=== PATIENT | female | born 1940 | race Caucasian/White ===

== ENCOUNTER 2020-12-13 19:11 | Inpatient (IN) | payer MEDICARE, OTHER ==
[~2020-12-13] VITALS: Ht 167.6 cm; Wt 87.1 kg
[~2020-12-13 19:11] MED LIST: ADVAIR 100-501 EACH; ALEVE220 M1 PO; ALIGN4 MG PO; AMLODIPINE BESYL5 MG PO; ATENOLOL25 MG PO; ATENOLOL50 MG PO; AZELASTINE137 MCG/0.; BENADRYL25 M1 PO; CARVEDILOL12.5 MG PO; CLOBETASOL1 EA/15 GM TOP; COUMADIN5 MG PO; DICLOFENAC SODI50 MG PO; DICYCLOMINE HCL20 MG PO; DIGOXIN125 MCG PO; DOCUSATE SODIU100 MG PO; ESCITALOPRAM OX20 MG PO; FERROUS SULFAT325 MG PO; FLAGYL250 MG PO; HUMALOG100 UNIT/1; HUMULIN 70-30 V10 ML SQ; HYDRALAZINE HCL10 MG PO; HYDRALAZINE HCL25 MG PO; HYDROCHLOROTHIA25 MG PO; KLOR-CON M2020 MEQ; KLOR-CON M2020 MEQ PO; LANTUS SOL300 UNIT/3 SQ; LEVOCETIRIZINE D5 MG PO; LEVOTHYROXINE50 MCG PO; LEXAPRO10 MG PO; LISINOPRIL10 MG PO; LORAZEPAM0.5 MG PO; LOSARTAN POTAS100 MG PO; LOSARTAN POTASS25 MG PO; LOSARTAN-HCTZ1 EAC2 PO; MELOXICAM7.5 MG PO; MINOCYCLINE HCL50 MG PO; NITROSTAT0.4 MG SL; NORCO 7.5-3251 EACH PO; PANTOPRAZOLE SO40 MG PO; PROTONIX40 MG PO; SIMVASTATIN40 MG PO; TOUJEO SC; TRAMADOL-ACETAMI1 EA PO; TRAZODONE HCL50 MG PO; TYLENOL WITH C1 EACH PO; ULTRAM50 MG PO; VITAMIN B-1100 M1 PO; VITAMIN B12 PO; WARFARIN SODIUM5 MG; XARELTO20 MG PO; Z DILTIAZEM PO; Z.0.ATIVAN0.5 MG PO; Z.0.GLIPIZIDE ER10 M PO; Z.0.LEVOTHROID50 MCG PO; Z.0.LEXAPRO20 MG PO; Z.0.LISINOPRIL40 MG PO; Z.0.LOSARTAN POTAS10 PO; Z.0.LYRICA50 MG PO; Z.0.PANTOPRAZOLE SO4 PO; Z.0.PLAVIX75 MG PO; Z.0.PROTONIX40 MG PO; Z.0.SIMVASTATIN40 MG PO
[2020-12-13] MEDS ORDERED: ASPIRIN 81 MG CHEW TAB PO ONE ×2 (19:15→21:15)
[2020-12-13] MEDS ORDERED: DILTIAZEM HCL 5 MG/ML 5 ML VIAL IV STA (19:23)
[2020-12-13 19:33] LABS: BASOPHILS # (AUTO) 0.1 (0.0-0.1); BASOPHILS % 0.4 % (0.0-1.0); EOSINOPHILS # (AUTO) 0.4 (0.0-0.4); EOSINOPHILS % 2.7 % (0.0-6.0); HEMATOCRIT 40.6 % (34.2-44.1); HEMOGLOBIN 13.7 g/dL (12.0-16.0); LYMPHOCYTES # (AUTO) 1.2 (1.0-3.2); LYMPHOCYTES % 8.9 % (18.0-39.1); MEAN CORPUSCULAR HEMOGLOBIN 28.7 pg (28-32); MEAN CORPUSCULAR HGB CONC 33.7 g/dL (31-35); MEAN CORPUSCULAR VOLUME 85.1 fL (81-99); MONOCYTES # (AUTO) 0.7 (0.2-0.8); MONOCYTES % 4.7 % (4.4-11.3); NEUTROPHILS # (AUTO) 11.5 (2.1-6.9); PLATELET COUNT 504 x10e3/uL (140-360); RED BLOOD COUNT 4.77 x10e6/uL (3.6-5.1); RED CELL DISTRIBUTION WIDTH 13.6 % (11.7-14.4)
[2020-12-13 20:00] LABS: ALBUMIN 3.5 g/dL (3.5-5.0); ALBUMIN/GLOBULIN RATIO 1.2 (0.8-2.0); ANION GAP 18.1 mmol/L (8-16); CALCIUM 8.5 mg/dL (8.4-10.2); CREATININE, SERUM 1.08 mg/dL (0.57-1.11); POTASSIUM 5.1 mmol/L (3.5-5.1)
[2020-12-13 20:11] LABS: CREATINE KINASE MB 1.9 ng/mL (0-5.0)
[2020-12-13] MEDS ORDERED: MORPHINE SULFATE INJ 4 MG/ML INJ 1ML IV PRN (21:15)
[2020-12-13] MEDS ORDERED: ONDANSETRON HCL INJ 2MG/ML 2ML 2 MG/ML VIAL IV PRN (21:15)
[2020-12-13 22:23] VITALS: BP 113/99
[2020-12-13 22:50] VITALS: BP 113/99
[2020-12-13 22:53] VITALS: BP 113/99
[2020-12-14] VITALS (7 sets, daily range): BP systolic 126–169; BP diastolic 55–71
[2020-12-14] MEDS ORDERED: MUCINEX DM ER1 EAC1 PO (01:40)
[2020-12-14] MEDS ORDERED: ALENDRONATE SOD70 MG PO (02:11)
[2020-12-14] MEDS ORDERED: FLONASE ALLERG9.9 ML INH (02:11)
[2020-12-14] MEDS ORDERED: NAMENDA5 MG PO (02:11)
[2020-12-14] MEDS ORDERED: ISOSORBIDE MONO30 MG PO (02:11)
[2020-12-14] MEDS ORDERED: FLUOXETINE HCL20 MG PO (02:11)
[2020-12-14] MEDS ORDERED: XARELTO20 MG PO (02:11)
[2020-12-14] MEDS ORDERED: CYMBALTA30 MG PO (02:11)
[2020-12-14] MEDS ORDERED: ENTRESTO 24 MG1 EACH PO (02:11)
[2020-12-14 04:47] LABS: BASOPHILS % 0.3 % (0.0-1.0); EOSINOPHILS # (AUTO) 0.3 (0.0-0.4); EOSINOPHILS % 3.7 % (0.0-6.0); HEMATOCRIT 39.1 % (34.2-44.1); LYMPHOCYTES # (AUTO) 1.6 (1.0-3.2); LYMPHOCYTES % 17.7 % (18.0-39.1); MEAN CORPUSCULAR HEMOGLOBIN 28.5 pg (28-32); MEAN CORPUSCULAR HGB CONC 33.2 g/dL (31-35); MEAN CORPUSCULAR VOLUME 85.7 fL (81-99); MONOCYTES # (AUTO) 0.8 (0.2-0.8); MONOCYTES % 8.9 % (4.4-11.3); NEUTROPHILS # (AUTO) 6.1 (2.1-6.9); NEUTROPHILS % 68.8 % (38.7-80.0); PLATELET COUNT 408 x10e3/uL (140-360); RED BLOOD COUNT 4.56 x10e6/uL (3.6-5.1); RED CELL DISTRIBUTION WIDTH 13.8 % (11.7-14.4)
[2020-12-14 05:26] LABS: ALANINE AMINOTRANSFERASE 12 IU/L (0-55); ALBUMIN 3.2 g/dL (3.5-5.0); ALBUMIN/GLOBULIN RATIO 1.2 (0.8-2.0); ALKALINE PHOSPHATASE 49 IU/L (40-150); ANION GAP 14.4 mmol/L (8-16); BLOOD UREA NITROGEN 13 mg/dL (7-26); BUN/CREATININE RATIO 15 (6-25); CALCIUM 8.6 mg/dL (8.4-10.2); CARBON DIOXIDE 24 mmol/L (22-29); CHLORIDE 95 mmol/L (98-107); CREATININE, SERUM 0.86 mg/dL (0.57-1.11); EST GLOMERULAR FILTRATION RATE > 60 ML/MIN (60-); GLUCOSE 169 mg/dL (74-118); POTASSIUM 4.4 mmol/L (3.5-5.1); SODIUM 129 mmol/L (136-145)
[2020-12-14 06:17] LABS: CREATINE KINASE MB 9.2 ng/mL (0-5.0)
[2020-12-14] MEDS ORDERED: ZOLPIDEM TARTRATE 5 MG TAB PO PRN (09:45)
[2020-12-14] MEDS ORDERED: DOCUSATE SODIUM 100 MG CAP PO PRN (09:45)
[2020-12-14] MEDS ORDERED: ACETAMINOPHEN 325 MG TAB PO PRN (09:45)
[2020-12-14] MEDS ORDERED: CEFTRIAXONE 2 GM/DEXT 100 ML 2 GM/100 ML ML IV SCH (09:45)
[2020-12-14 10:43] LABS: CHOL/HDL RATIO 4.8 (3.0-3.6)
[2020-12-14] MEDS ORDERED: CEFTRIAXONE 1 GM in SODIUM CHLORIDE 0.9% 50ML 50 ML IV SCH (11:00)
[2020-12-14] MEDS: SODIUM CHLORIDE 0.9% 1000ML 1,000 ML IV SCH ×2 (11:28→23:16)
[2020-12-14] MEDS: FERROUS SULFATE 325 MG TAB PO SCH (11:28)
[2020-12-14] MEDS: ASPIRIN 325 MG TAB PO SCH (11:28)
[2020-12-14] MEDS: METOPROLOL TARTRATE 25 MG TAB PO SCH ×2 (11:28→16:47)
[2020-12-14] MEDS: PANTOPRAZOLE SOD 40 MG TABEC PO SCH (11:29)
[2020-12-14] MEDS: ENOXAPARIN INJ 80 MG/0.8 ML SYR SC SCH ×2 (11:29→21:40)
[2020-12-14] MEDS: CEFTRIAXONE 1 GM in SODIUM CHLORIDE 0.9% 50ML 50 ML IV SCH (11:32)
[2020-12-14] MEDS ORDERED: DEXTROSE 50% SYRINGE 50 ML IV PRN (12:15)
[2020-12-14] MEDS ORDERED: LIDOCAINE HCL 2% LOCAL 20 ML VIAL ONE (12:26)
[2020-12-14] MEDS ORDERED: IOPAMIDOL 370 MG/ML 200 ML INFUS..BTL INJ ONE (12:27)
[2020-12-14] MEDS ORDERED: HEPARIN SOD/SOD CHLORIDE 2,000 ML ONE (12:27)
[2020-12-14] MEDS: INSULIN REGULAR, HUMAN 100 UNIT/1 ML 3ML VIAL SQ SCH ×3 (12:30→21:00)
[2020-12-14 12:58] LABS: CLARITY,URINE CLEAR (CLEAR); COLOR,URINE YELLOW (YELLOW)
[2020-12-14 12:59] LABS: KETONES,URINE NEGATIVE (NEGATIVE); LEUKOCYTE ESTERASE ,URINE NEGATIVE (NEGATIVE); NITRITE,URINE NEGATIVE (NEGATIVE); PROTEIN,URINE DIPSTICK NEGATIVE (NEGATIVE); URINE UROBILINOGEN 0.2 mg/dL (0.2 - 1)
[2020-12-14 13:04] LABS: EPITHELIAL CELLS,URINE FEW /LPF
[2020-12-14] MEDS ORDERED: FENTANYL CITRATE/PF 100MCG/2 ML INJ ONE (13:05)
[2020-12-14] MEDS ORDERED: MIDAZOLAM HCL 2 MG/2 ML VIAL ONE (13:05)
[2020-12-14] MEDS ORDERED: DIPHENHYDRAMINE HCL INJ 50 MG/ML VIAL ONE (13:30)
[2020-12-14] MEDS ORDERED: LABETALOL HCL 20 ML ONE (14:02)
[2020-12-14 15:45] LABS: CREATINE KINASE MB 4.4 ng/mL (0-5.0)
[2020-12-14] MEDS: MEMANTINE 10 MG TAB PO SCH (16:47)
[2020-12-14] MEDS: ATORVASTATIN 40 MG TAB PO SCH (21:40)
[2020-12-15] VITALS (8 sets, daily range): BP systolic 110–178; BP diastolic 57–81
[2020-12-15] MEDS: LEVOTHYROXINE SODIUM 75 MCG TAB PO SCH (06:17)
[2020-12-15] MEDS: PANTOPRAZOLE SOD 40 MG TABEC PO SCH (07:47)
[2020-12-15] MEDS: INSULIN REGULAR, HUMAN 100 UNIT/1 ML 3ML VIAL SQ SCH ×4 (07:53→20:53)
[2020-12-15] MEDS: ASPIRIN 325 MG TAB PO SCH (08:00)
[2020-12-15] MEDS: FERROUS SULFATE 325 MG TAB PO SCH (08:01)
[2020-12-15] MEDS: METOPROLOL TARTRATE 25 MG TAB PO SCH ×2 (08:01→17:30)
[2020-12-15] MEDS: DULOXETINE HCL 30 MG DELAYED RELEASE PO SCH (08:01)
[2020-12-15] MEDS: FLUOXETINE HCL 20 MG CAP PO SCH (08:01)
[2020-12-15] MEDS: ENOXAPARIN INJ 80 MG/0.8 ML SYR SC SCH ×2 (08:01→20:45)
[2020-12-15] MEDS: MEMANTINE 10 MG TAB PO SCH ×2 (08:01→17:30)
[2020-12-15] MEDS: AMIODARONE HCL 200 MG TAB PO SCH ×2 (09:21→17:29)
[2020-12-15] MEDS: CEFTRIAXONE 1 GM in SODIUM CHLORIDE 0.9% 50ML 50 ML IV SCH (12:05)
[2020-12-15] MEDS: SODIUM CHLORIDE 0.9% 1000ML 1,000 ML IV SCH ×2 (13:02→23:13)
[2020-12-15] MEDS: DIGOXIN 0.125 MG TAB PO SCH (16:03)
[2020-12-15] MEDS: ATORVASTATIN 40 MG TAB PO SCH (20:45)
[2020-12-16] VITALS: BP 125/108
[2020-12-16 04:00] VITALS: BP 131/55
[2020-12-16] MEDS: LEVOTHYROXINE SODIUM 75 MCG TAB PO SCH (06:16)
[2020-12-16] MEDS ORDERED: AMIODARONE HCL200 MG PO (06:23)
[2020-12-16] MEDS ORDERED: ASPIRIN81 MG PO (06:23)
[2020-12-16] MEDS ORDERED: LOPRESSOR25 MG PO (06:23)
[2020-12-16] MEDS ORDERED: Atorvastatin PO (06:23)
[2020-12-16 08:51] VITALS: BP 157/63
[2020-12-16 08:54] VITALS: BP 157/63
[2020-12-16] MEDS: INSULIN REGULAR, HUMAN 100 UNIT/1 ML 3ML VIAL SQ SCH (09:49)
[2020-12-16] MEDS: AMIODARONE HCL 200 MG TAB PO SCH (09:52)
[2020-12-16] MEDS: DULOXETINE HCL 30 MG DELAYED RELEASE PO SCH (09:52)
[2020-12-16] MEDS: FERROUS SULFATE 325 MG TAB PO SCH (09:52)
[2020-12-16] MEDS: FLUOXETINE HCL 20 MG CAP PO SCH (09:52)
[2020-12-16] MEDS: ASPIRIN 325 MG TAB PO SCH (09:54)
[2020-12-16] MEDS: MEMANTINE 10 MG TAB PO SCH (09:54)
[2020-12-16] MEDS: DIGOXIN 0.125 MG TAB PO SCH (09:58)
[2020-12-16] MEDS ORDERED: ONDANSETRON HCL 4 MG ORAL DISINTEGRATING TAB PO PRN (10:00)
[2020-12-16] MEDS: PANTOPRAZOLE SOD 40 MG TABEC PO SCH (10:02)
[2020-12-16] MEDS: ENOXAPARIN INJ 80 MG/0.8 ML SYR SC SCH (10:02)
[2020-12-16] MEDS: METOPROLOL TARTRATE 25 MG TAB PO SCH (10:02)
[2020-12-16] MEDS: CEFTRIAXONE 1 GM in SODIUM CHLORIDE 0.9% 50ML 50 ML IV SCH (12:00)
[2020-12-16 12:02] VITALS: BP 155/78
== END 2020-12-16 13:55 | disposition home or self-care (01) | DRG 281 ==
LOC: ER 20:45 → ERHOLD 22:20 → MED/SURG 22:37
PROVIDERS: ADMIT Internal Medicine; ATTEND Internal Medicine
PROC: 4A023N7 Measurement of Cardiac Sampling and Pressure, Left Heart, Percutaneous Approach (ICD-10-PCS; principal; 2020-12-14)
PROC: B2111ZZ Fluoroscopy of Multiple Coronary Arteries using Low Osmolar Contrast (ICD-10-PCS; 2020-12-14)
PROC: B2121ZZ Fluoroscopy of Single Coronary Artery Bypass Graft using Low Osmolar Contrast (ICD-10-PCS; 2020-12-14)
DX: I21.4 Non-ST elevation (NSTEMI) myocardial infarction (principal); N17.9 Acute kidney failure, unspecified; E87.1 Hypo-osmolality and hyponatremia; I48.20 Chronic atrial fibrillation, unspecified; I25.10 Atherosclerotic heart disease of native coronary artery without angina pectoris; E11.9 Type 2 diabetes mellitus without complications; K21.9 Gastro-esophageal reflux disease without esophagitis; E03.9 Hypothyroidism, unspecified; F03.90 Unspecified dementia, unspecified severity, without behavioral disturbance, psychotic disturbance, mood disturbance, and anxiety; Z95.1 Presence of aortocoronary bypass graft; Z95.5 Presence of coronary angioplasty implant and graft; Z88.2 Allergy status to sulfonamides; Z82.49 Family history of ischemic heart disease and other diseases of the circulatory system; Z83.3 Family history of diabetes mellitus; Z80.9 Family history of malignant neoplasm, unspecified; Z95.810 Presence of automatic (implantable) cardiac defibrillator; Z79.82 Long term (current) use of aspirin
CPT/HCPCS: 36415; 71045; 80053; 80061; 81001; 82550; 82553; 83036; 83880; 84484; 85025; 93005; 93306; 93455; 96372; 99152; 99153; 99251; 99284; C1760; C1769; C1887; C1894; J0696; J1200; J1650; J1817; J2001; J2250; J3010; J7030; Q9967; U0002